=== PATIENT | male | born 1955 | race Caucasian/White ===

== ENCOUNTER 2021-07-24 12:32 | Outpatient (CLI) | payer MEDICARE, MEDICAID | END 2021-07-24 22:35 | disposition home or self-care (01) | LOC: CARD DIAG 12:32 | PROVIDERS: ATTEND Internal Medicine Cardiovascular Disease | DX: I08.0 Rheumatic disorders of both mitral and aortic valves (principal); I77.810 Thoracic aortic ectasia; I11.9 Hypertensive heart disease without heart failure | CPT/HCPCS: 93306 ==